=== PATIENT | female | born 1995 | race American Indian/Alaskan Native ===

== ENCOUNTER 2017-09-21 08:42 | Emergency (ER) | payer OTHER ==
[2017-09-21] MEDS ORDERED: ZOFRAN IV ONE (09:20)
[2017-09-21] MEDS ORDERED: MORPHINE IV ONE (09:20)
--- NOTE | 2017-09-21 09:25 | Emergency Department Report ---
ED Abdominal Pain HPI - General Chief Complaint: Nausea/Vomiting/Diarrhea Stated Complaint: NAUSEA/DEHYDRATED Time Seen by Provider: 09/21/17 09:17 Source: patient Mode of arrival: Ambulatory Limitations: No Limitations - History of Present Illness Initial Comments: 22-year-old female has history of "colitis" requiring hospitalization in April. Complaint: abdominal pain -: Gradual, hour(s) (12) Location: LLQ, RLQ Radiation: none Migration to: no migration Severity scale (0 -10): 10 Quality: cramping Consistency: constant Improves With: nothing Worsens With: nothing - Related Data Previous Rx's Medication Instructions Recorded Last Taken Type Promethazine [Phenergan SUPPOS] 25 mg OK Q6HR PRN #20 supp.rect 09/21/17 Unknown Rx Allergies Allergy/AdvReac Type Severity Reaction Status Date / Time No Known Allergies Allergy Unverified 09/21/17 08:56 ED Review of Systems ROS: Stated complaint: NAUSEA/DEHYDRATED Other details as noted in HPI ED Past Medical Hx - Past Medical History Additional medical history: COLITIS - Surgical History Past Surgical History?: No - Social History Smoking Status: Never Smoker Substance Use Type: Alcohol, Marijuana - Medications Home Medications: Home Medications Medication Instructions Recorded Confirmed Last Taken Type Promethazine [Phenergan SUPPOS] 25 mg OK Q6HR PRN #20 supp.rect 09/21/17 Unknown Rx ED Physical Exam - General Limitations: No Limitations General appearance: alert, other (appears uncomfortable actively vomiting) - Head Head exam: Present: atraumatic, normocephalic - Eye Eye exam: Present: normal appearance - ENT ENT exam: Present: normal orophraynx, mucous membranes moist - Neck Neck exam: Present: normal inspection, meningismus - Respiratory Respiratory exam: Present: normal lung sounds bilaterally. Absent: respiratory distress, wheezes, rales, rhonchi - Cardiovascular Cardiovascular Exam: Present: regular rate, normal rhythm, normal heart sounds. Absent: systolic murmur, diastolic murmur, rubs, gallop - GI/Abdominal GI/Abdominal exam: Present: soft, normal bowel sounds. Absent: distended, tenderness, guarding, rebound - Extremities Exam Extremities exam: Present: normal inspection - Back Exam Back exam: Present: normal inspection - Neurological Exam Neurological exam: Present: alert, oriented X3 - Psychiatric Psychiatric exam: Present: normal affect, normal mood - Skin Skin exam: Present: warm, dry, intact, normal color. Absent: rash ED Course Vital Signs 09/21/17 09/21/17 09/21/17 08:56 09:38 10:00 Temperature 99.1 F 98.1 F Pulse Rate 79 76 72 Respiratory 32 H 17 18 Rate Blood Pressure 106/66 159/85 159/85 O2 Sat by Pulse 99 100 96 Oximetry 09/21/17 10:30 Temperature Pulse Rate 77 Respiratory 18 Rate Blood Pressure 109/42 O2 Sat by Pulse 99 Oximetry ED Medical Decision Making - Lab Data Result diagrams: 09/21/17 09:14 09/21/17 09:14 Laboratory Results - last 24 hr 09/21/17 09/21/17 09/21/17 09:14 09:14 09:14 WBC 7.8 RBC 4.22 Hgb 13.0 Hct 38.4 MCV 91 MCH 31 MCHC 34 RDW 13.4 Plt Count 302 Lymph % (Auto) 8.0 L Bartholomew % (Auto) 3.4 Eos % (Auto) 0.0 Baso % (Auto) 0.4 Lymph # 0.6 L Bartholomew # 0.3 Eos # 0.0 Baso # 0.0 Seg Neutrophils % 88.2 H Seg Neutrophils # 6.9 Sodium 140 Potassium 4.1 Chloride 97.8 L Carbon Dioxide 19 L Anion Gap 27 BUN 10 Creatinine 0.6 L Estimated GFR > 60 BUN/Creatinine Ratio 17 Glucose 119 H Calcium 10.0 Total Bilirubin 1.10 AST 63 H ALT 66 H Alkaline Phosphatase 81 Total Protein 8.7 H Albumin 5.2 H Albumin/Globulin Ratio 1.5 Lipase 23 HCG, Qual Negative Urine Color Urine Turbidity Urine pH Ur Specific [place] Urine Protein Urine Glucose (UA) Urine Ketones Urine Blood Urine Nitrite Urine Bilirubin Urine Urobilinogen Ur Leukocyte Esterase Urine WBC (Auto) Urine RBC (Auto) U Epithel Cells (Auto) Urine Mucus 09/21/17 12:49 WBC RBC Hgb Hct MCV MCH MCHC RDW Plt Count Lymph % (Auto) Bartholomew % (Auto) Eos % (Auto) Baso % (Auto) Lymph # Bartholomew # Eos # Baso # Seg Neutrophils % Seg Neutrophils # Sodium Potassium Chloride Carbon Dioxide Anion Gap BUN Creatinine Estimated GFR BUN/Creatinine Ratio Glucose Calcium Total Bilirubin AST ALT Alkaline Phosphatase Total Protein Albumin Albumin/Globulin Ratio Lipase HCG, Qual Urine Color Yellow Urine Turbidity Clear Urine pH 6.0 Ur Specific [place] 1.023 Urine Protein 100 mg/dl Urine Glucose (UA) Neg Urine Ketones 20 Urine Blood Mod Urine Nitrite Neg Urine Bilirubin Neg Urine Urobilinogen < 2.0 Ur Leukocyte Esterase Neg Urine WBC (Auto) 2.0 Urine RBC (Auto) 46.0 U Epithel Cells (Auto) 2.0 Urine Mucus 2+ Vital Signs - 24 hr 09/21/17 09/21/17 09/21/17 08:56 09:38 10:00 Temperature 99.1 F 98.1 F Pulse Rate 79 76 72 Respiratory 32 H 17 18 Rate Blood Pressure 106/66 159/85 159/85 O2 Sat by Pulse 99 100 96 Oximetry 09/21/17 10:30 Temperature Pulse Rate 77 Respiratory 18 Rate Blood Pressure 109/42 O2 Sat by Pulse 99 Oximetry - Medical Decision Making Ms. Castro has abdominal pain and vomiting. She had similar presentation when she was admitted to the hospital in April. She was admitted to an outside hospital in [place] at that time. When she felt better, she was able to get him additional history. Her Symptoms began in 2010. It seems that once a year she requires ED evaluation or hospitalization for severe abdominal pain and vomiting. She has yet to see a med admin. She noted that she ate tamales prior to her hospitalization in April. Yesterday she ate taquitos for lunch. I suggested that she may have irritable bowel syndrome. With infrequent symptoms I do not suspect inflammatory bowel disease. At this time patient looks and feels much better. I have referred her a med admin and medicine physician. I prescribed Zofran ODT promethazine rectal suppositories. Critical care attestation.: If time is entered above; I have spent that time in minutes in the direct care of this critically ill patient, excluding procedure time. ED Disposition Clinical Impression: Abdominal pain, Vomiting Disposition: TO HOME OR SELFCARE Is pt being admited?: No Does the pt Need Aspirin: No Condition: Stable Instructions: Irritable Bowel Syndrome (ED), Acute Abdominal Pain (ED) Prescriptions: Promethazine [Phenergan SUPPOS] 25 mg OK Q6HR PRN #20 supp.rect PRN Reason: Nausea Referrals: LORRIE MCCARTHY MD [Staff Physician] - 3-5 Days AILEEN VILLANUEVA MD [Staff Physician] - 3-5 Days Forms: Work/School Release Form(ED) Time of Disposition: 15:00
[2017-09-21 09:32] LABS: Basophils % (Auto) 0.4 % (0.0-1.8); Hematocrit 38.4 % (30.3-42.9); Lymphocytes # (Auto) 0.6 K/mm3 (1.2-5.4); Mean Corpuscular HGB Conc 34 % (30-34); Mean Corpuscular Hemoglobin 31 pg (28-32); Mean Corpuscular Volume 91 fl (79-97); Monocytes # (Auto) 0.3 K/mm3 (0.0-0.8); Monocytes % (Auto) 3.4 % (0.0-7.3); Platelet Count 302 K/mm3 (140-440); Red Blood Count 4.22 M/mm3 (3.65-5.03); Red Cell Distribution Width 13.4 % (13.2-15.2)
[2017-09-21 09:47] LABS: Alanine Aminotransferase 66 units/L (7-56); Albumin 5.2 g/dL (3.9-5); BUN/Creatinine Ratio 17; Blood Urea Nitrogen 10 mg/dL (7-17); Hemolysis Index 34; Lipase 23 units/L (13-60)
[2017-09-21] MEDS ORDERED: NACL 0.9% 1000 ML 1,000 ML ONE (09:47)
[2017-09-21] MEDS ORDERED: NACL 0.9% 1000 ML 1,000 ML IV ONE (09:50)
[2017-09-21 13:19] LABS: Bilirubin,Urine NEG (Negative); Blood,Urine MOD (Negative); Color,Urine Yellow (Yellow); Mucus,Urine 2+ /HPF; Urobilinogen,Urine < 2.0 mg/dL (<2.0)
[2017-09-21 15:17] VITALS: BP 110/80
== END 2017-09-21 15:17 | disposition home or self-care (01) ==
LOC: ED 08:42
DX: R10.30 Lower abdominal pain, unspecified (principal); R11.10 Vomiting, unspecified; F12.10 Cannabis abuse, uncomplicated
CPT/HCPCS: 36415; 80053; 81001; 83690; 84703; 85025; 96361; 96374; 96375; 99284; J2270; J2405; J7030

== ENCOUNTER 2018-10-13 16:52 | Emergency (ER) | payer OTHER ==
[2018-10-13] MEDS ORDERED: NACL 0.9% 1000 ML IV ONE (17:07)
--- NOTE | 2018-10-13 17:07 | Emergency Department Report ---
Chief Complaint: Nausea/Vomiting/Diarrhea Stated Complaint: DRY HEAVING CONSTANT VOMITTING Time Seen by Provider: 10/13/18 17:07 - HPI History of Present Illness: actively vomiting denies dm/gastropare. not taking her colitis meds due to money last colonoscopy in fall 2017 MSE completed - Exam Vital Signs: Vital Signs 10/13/18 16:57 Temperature 98.8 F Pulse Rate 75 Respiratory 22 Rate O2 Sat by Pulse 100 Oximetry MSE screening note: Focused history and physical exam performed. Due to findings the following was ordered: ED Disposition for MSE Condition: Stable
[2018-10-13 18:15] LABS: Hematocrit 34.5 % (30.3-42.9); Hemoglobin 11.5 gm/dl (10.1-14.3); Mean Corpuscular HGB Conc 33 % (30-34); Mean Corpuscular Volume 92 fl (79-97); Platelet Count 238 K/mm3 (140-440); Red Blood Count 3.74 M/mm3 (3.65-5.03); Red Cell Distribution Width 12.5 % (13.2-15.2)
[2018-10-13 18:16] LABS: Alanine Aminotransferase 28 units/L (7-56); Albumin 4.5 g/dL (3.9-5); BUN/Creatinine Ratio 20; Blood Urea Nitrogen 12 mg/dL (7-17); Calcium 8.7 mg/dL (8.4-10.2); Hemolysis Index 6
[2018-10-13 18:51] LABS: Basophils % (Manual) 0 % (0.0-1.8); Eosinophils % (Manual) 0 % (0.0-4.3); Monocytes % (Manual) 0 % (0.0-7.3); RBC Morphology Normal; Total Cells Counted 100
--- NOTE | 2018-10-13 19:17 | Emergency Department Report ---
ED Abdominal Pain HPI - General Chief Complaint: Nausea/Vomiting/Diarrhea Stated Complaint: DRY HEAVING CONSTANT VOMITTING Time Seen by Provider: 10/13/18 17:07 Source: patient Mode of arrival: Ambulatory Limitations: No Limitations - History of Present Illness Initial Comments: 23 female presents to the emergency department complaining of a a couple day history of nausea, vomiting and diarrhea, which is similar to episodes she had about a year ago. States that she's had had these nausea vomiting diarrhea episodes a few times, which is usually resolved with Cipro and Flagyl. She she reports no hematemesis, no hematochezia, no hematuria, no fever, chills, sweats, chest pain, palpitations, no presyncope. He states he sees. She has had over 10 vomiting and diarrhea episodes. -: Gradual Location: diffuse Radiation: none Migration to: no migration Severity: mild Severity scale (0 -10): 8 Quality: burning Consistency: constant Improves With: nothing Context: other (possible N ingestion or contact for our inflammatory gastritis origin not quite sure) Associated Symptoms: nausea, vomiting, diarrhea. denies: constipation, dysuria, hematemesis, hematochezia, hematuria, anorexia - Related Data Previous Rx's Medication Instructions Recorded Last Taken Type Ondansetron [Zofran Odt] 4 mg PO Q8HR PRN #20 tab.rapdis 09/21/17 Unknown Rx Promethazine [Phenergan SUPPOS] 25 mg UT Q6HR PRN #20 supp.rect 09/21/17 Unknown Rx Ciprofloxacin HCl [Cipro] 500 mg PO BID #20 tablet 10/13/18 Unknown Rx Hyoscyamine Subl [Levsin Sl 0.125 0.125 mg SL Q4HR PRN #20 tablet 10/13/18 Unknown Rx TAB] Ondansetron [Zofran Odt] 4 mg PO Q8HR #20 tab.rapdis 10/13/18 Unknown Rx Allergies Allergy/AdvReac Type Severity Reaction Status Date / Time No Known Allergies Allergy Unverified 09/21/17 08:56 ED Review of Systems ROS: Stated complaint: DRY HEAVING CONSTANT VOMITTING Other details as noted in HPI Constitutional: denies: chills, fever Eyes: denies: eye pain, eye discharge, vision change ENT: denies: ear pain, throat pain Respiratory: denies: cough, shortness of breath, wheezing Cardiovascular: denies: chest pain, palpitations Endocrine: no symptoms reported Gastrointestinal: nausea, vomiting, diarrhea. denies: abdominal pain Genitourinary: denies: urgency, dysuria, discharge Musculoskeletal: denies: back pain, joint swelling, arthralgia Skin: denies: rash, lesions Neurological: denies: headache, weakness, paresthesias Psychiatric: denies: anxiety, depression Hematological/Lymphatic: denies: easy bleeding, easy bruising ED Past Medical Hx - Past Medical History Previous Medical History?: Yes Additional medical history: COLITIS - Surgical History Past Surgical History?: No - Social History Smoking Status: Never Smoker Substance Use Type: Alcohol - Medications Home Medications: Home Medications Medication Instructions Recorded Confirmed Last Taken Type Ondansetron [Zofran Odt] 4 mg PO Q8HR PRN #20 tab.rapdis 09/21/17 Unknown Rx Promethazine [Phenergan SUPPOS] 25 mg UT Q6HR PRN #20 supp.rect 09/21/17 Unknown Rx Ciprofloxacin HCl [Cipro] 500 mg PO BID #20 tablet 10/13/18 Unknown Rx Hyoscyamine Subl [Levsin Sl 0.125 0.125 mg SL Q4HR PRN #20 tablet 10/13/18 Unknown Rx TAB] Ondansetron [Zofran Odt] 4 mg PO Q8HR #20 tab.rapdis 10/13/18 Unknown Rx ED Physical Exam - General Limitations: No Limitations General appearance: alert, in no apparent distress - Head Head exam: Present: atraumatic, normocephalic - Eye Eye exam: Present: normal appearance, PERRL, EOMI Pupils: Present: normal accommodation - ENT ENT exam: Present: normal exam, normal orophraynx, mucous membranes moist - Neck Neck exam: Present: normal inspection, tenderness, full ROM - Respiratory Respiratory exam: Present: normal lung sounds bilaterally. Absent: respiratory distress, wheezes, rales, chest wall tenderness, accessory muscle use - Cardiovascular Cardiovascular Exam: Present: regular rate, normal rhythm. Absent: systolic murmur, diastolic murmur, rubs, gallop - GI/Abdominal GI/Abdominal exam: Present: soft, tenderness (mild mild tenderness with deep palpation. The abdomen is soft. No [place] sign. No tenderness at McBurney's or Beatty sign. No abdominal distention or bruit or rigidness.), normal bowel sounds. Absent: guarding, hyperactive bowel sounds, organomegaly, mass, bruit, hernia - Extremities Exam Extremities exam: Present: normal inspection, full ROM, normal capillary refill, pedal edema - Back Exam Back exam: Present: normal inspection. Absent: CVA tenderness (R), CVA tenderness (L) - Neurological Exam Neurological exam: Present: alert, oriented X3, CN II-XII intact, normal gait - Psychiatric Psychiatric exam: Present: normal affect, normal mood. Absent: depressed, anxious, flat affect, manic - Skin Skin exam: Present: warm, dry, intact, normal color. Absent: rash, cyanosis, diaphoretic, erythema ED Course Vital Signs 10/13/18 10/13/18 10/14/18 16:57 20:12 00:30 Temperature 98.8 F 99.1 F 99.2 F Pulse Rate 75 78 101 H Respiratory 22 20 16 Rate Blood Pressure 132/55 107/55 [Left] O2 Sat by Pulse 100 100 99 Oximetry - Reevaluation(s) Reevaluation #1: 10/14/18 02:13 Symptoms are 100% resolved feels much, much better, tolerating orals, no abdominal pain. She initially refused CT scan and further workup and eval uation. However, upon her discharge that has been treated with nausea and vomiting and then changed her mind about the test that were recommended. Subsequently CT scan was obtained that she simply full-grown the pelvis. Ultrasound was only positive for cyst. She was aware of the systems are revi ewed ED Medical Decision Making - Lab Data Result diagrams: 10/13/18 17:50 10/13/18 17:50 - Radiology Data Radiology results: image reviewed Print Report Referring Physician: BELLE CASTAÑEDA Patient Name: SHEREE COX Date of : 1995 Sex: Female Report Date: 2018-10-13 Report Status: Finalized Findings [facility] [address] [place] [address] Cat Scan Report Signed Patient: SHEREE COX MR#: [id number] : 1995 Acct:[id number] Age/Sex: 23 / F ADM Date: 10/13/18 Loc: ED Attending Dr: Ordering Physician: JAMAAL WOLFE Date of Service: 10/13/18 Procedure(s): CT abdomen pelvis w con Accession Number(s): [id number] cc: JAMAAL WOLFE PROCEDURE: CT ABDOMEN PELVIS W CON TECHNIQUE: Following administration of IV contrast axial helical imaging was performed through the abdomen and pelvis with sagittal and coronal reformatted images obtained. Delayed axial helical imaging was also performed to the abdomen and pelvis. HISTORY: ABD PAIN AND DIARRHEA WITH VOMITING COMPARISONS: None FINDINGS: The lung bases are without infiltrate, pneumothorax or pleural fluid collection. There is evidence of fatty infiltration of the liver. The spleen, pancreas, kidneys and adrenal glands are unremarkable. The gallbladder is moderately distended and unremarkable in appearance. The bowel is normal caliber. The appendix is normal caliber. There is a small amount of free fluid in the pelvis. The Hounsfield units are higher than would be expected for a simple transudate. The amount of fluid is more than would be expected for physiologic fluid. There is no evidence of pneumoperitoneum. The abdominal aorta is normal caliber. There is no evidence of intra-abdominal adenopathy. The urinary bladder is moderately distended but otherwise unremarkable. The uterus and adnexa are notable for air within the cervix. The bony structures are unremarkable. IMPRESSION: 1. Small amount of free fluid in the pelvis with Hounsfield units are higher than would be expected for a simple transudate and may represent proteinaceous content or blood products. 2. Air within the cervix. Pelvic ultrasound may be helpful for further evaluation of the above findings. 3. Fatty infiltration of the liver. This document is electronically signed by Gerda Espinoza MD., October 13 2018 09:59:25 PM ET Transcribed By: ED Dictated By: GERDA ESPINOZA MD Electronically Authenticated By: GERDA ESPINOZA MD Signed Date/Time: 10/13/182200 - Medical Decision Making I discussed the left findings with misgivings getting up. States that her symptoms have improved since been in the emergency department. She received fluids as well as medication. Based on her examination and her history of her CT scan. She refused saying that she is pretty confident that the Cipro, Flagyl result problem multiple times in the past. She said she would like to have a prescription for that medication. She alert and oriented 3, no acute distress. No active bleeding. Afebrile Critical care attestation.: If time is entered above; I have spent that time in minutes in the direct care of this critically ill patient, excluding procedure time. ED Disposition Clinical Impression: Gastroenteritis, Ovarian cyst, Abdominal pain Disposition: TO HOME OR SELFCARE Is pt being admited?: No Does the pt Need Aspirin: No Condition: Stable Instructions: Gastroenteritis (ED), Acute Nausea and Vomiting (ED), Ovarian Cyst (ED) Prescriptions: Ciprofloxacin HCl [Cipro] 500 mg PO BID #20 tablet Hyoscyamine Subl [Levsin Sl 0.125 TAB] 0.125 mg SL Q4HR PRN #20 tablet PRN Reason: Spasms Ondansetron [Zofran Odt] 4 mg PO Q8HR #20 tab.arnulfo Referrals: YOSHI GUTIERREZ MD [Primary Care Provider] - 3-5 Days
[2018-10-13] MEDS ORDERED: ZOFRAN ONE (19:37)
[2018-10-13] MEDS ORDERED: ZOFRAN IV ONE (19:41)
[2018-10-13] MEDS ORDERED: LEVSIN SL SL ONE (20:17)
[2018-10-13] MEDS ORDERED: REGLAN IV STA (20:17)
[2018-10-13] MEDS ORDERED: NACL 0.9% 1000 ML 1,000 ML IV ONE (20:17)
[2018-10-13 20:18] LABS: Bilirubin,Urine NEG (Negative); Blood,Urine NEG (Negative); Color,Urine Straw (Yellow); Mucus,Urine FEW /HPF; Protein,Urine <15 mg/dL mg/dL (Negative); Urobilinogen,Urine < 2.0 mg/dL (<2.0)
[2018-10-13 20:28] LABS: HCG Qualitative,Urine Negative (Negative)
--- NOTE | 2018-10-13 22:01 | Cat Scan Report ---
PROCEDURE: CT ABDOMEN PELVIS W CON TECHNIQUE: Following administration of IV contrast axial helical imaging was performed through the a bdomen and pelvis with sagittal and coronal reformatted images obtained. Delayed axial helical imagin g was also performed to the abdomen and pelvis. HISTORY: ABD PAIN AND DIARRHEA WITH VOMITING COMPARISONS: None FINDINGS: The lung bases are without infiltrate, pneumothorax or pleural fluid collection. There is evidence of fatty infiltration of the liver. The spleen, pancreas, kidneys and adrenal glands are unremarkable. The gallbladder is moderately distended and unremarkable in appearance. The bowel is normal caliber. The appendix is normal caliber. There is a small amount of free fluid in the pelvis. The Hounsfield units are higher than would be ex pected for a simple transudate. The amount of fluid is more than would be expected for physiologic fl uid. There is no evidence of pneumoperitoneum. The abdominal aorta is normal caliber. There is no evidence of intra-abdominal adenopathy. The urinary bladder is moderately distended but otherwise unremarkable. The uterus and adnexa are notable for air within the cervix. The bony structures are unremarkable. IMPRESSION: 1. Small amount of free fluid in the pelvis with Hounsfield units are higher than would be expected f or a simple transudate and may represent proteinaceous content or blood products. 2. Air within the cervix. Pelvic ultrasound may be helpful for further evaluation of the above findings. 3. Fatty infiltration of the liver. This document is electronically signed by Gerda Espinoza MD., October 13 2018 09:59:25 PM ET
--- NOTE | 2018-10-14 00:12 | Ultrasound Report ---
PROCEDURE: US PELVIC COMPLETE TECHNIQUE: Real-time transabdominal sonography in multiple planes of the pelvis was performed. The p elvic structures, especially the ovaries, were not optimally visualized. Transvaginal sonography was then performed to better evaluate the structures and/or abnormalities described below with image docu mentation. HISTORY: pelvic pain and air in cervix and free fluid on CT COMPARISONS: None . FINDINGS: UTERUS Size: 7.7 x 3.7 x 4.6 cm. Endometrial thickness: 7 mm. Orientation: anteverted. Cervix: Normal. Fibroids/masses: None. RIGHT Ovary: 3.1 x 1.9 x 2.6 cm. Appearance: Dominant follicular cyst measures 9 mm. LEFT Ovary: 2.8 x 1.8 x 2.7 cm. Appearance: Normal. Pelvic fluid: Slight fluid around the right ovary. Other: None. IMPRESSION: The uterus and left ovary have a normal appearance. There is a small follicular cyst in the right ovary this measures 5 mm. Minimal fluid around the right ovary is noted.. This document is electronically signed by Eloise Casas DO., October 14 2018 12:09:56 AM ET
[2018-10-14 02:18] VITALS: BP 103/60
== END 2018-10-14 02:19 | disposition home or self-care (01) ==
LOC: ED 16:52
DX: K52.9 Noninfective gastroenteritis and colitis, unspecified (principal); N83.209 Unspecified ovarian cyst, unspecified side
CPT/HCPCS: 36415; 74177; 76830; 76856; 80053; 81001; 81025; 83690; 85007; 85025; 96361; 96374; 96375; 99284; J2405; J2765; J7030; Q9967

== ENCOUNTER 2018-10-14 12:15 | Emergency (ER) | payer OTHER ==
[2018-10-14 13:08] VITALS: BP 126/53
--- NOTE | 2018-10-14 13:08 | Emergency Department Report ---
Blank Doc - Documentation Documentation: This is a 23-year-old female that presents with nausea vomiting and abdominal pain. Stated was here last night for similar symptoms and felt better and was discharge but symptoms reoccurred. This initial assessment/diagnostic orders/clinical plan/treatment(s) is/are subject to change based on patient's health status, clinical progression and re- assessment by fellow clinical providers in the ED. Further treatment and workup at subsequent clinical providers discretion. Patient/guardians urged not to elope from the ED as their condition may be serious if not clinically assessed and managed. Initial orders include: 1- Patient sent to [facility] for further evaluation and treatment 2- labs 3- UA
[2018-10-14] MEDS ORDERED: REGLAN PO ONE (13:10)
[2018-10-14 14:02] LABS: Alanine Aminotransferase 25 units/L (7-56); Albumin 4.5 g/dL (3.9-5); BUN/Creatinine Ratio 16; Blood Urea Nitrogen 13 mg/dL (7-17); Calcium 9.3 mg/dL (8.4-10.2); Hemolysis Index 11
[2018-10-14 14:23] LABS: Basophils % (Auto) 0.3 % (0.0-1.8); Eosinophils % (Auto) 0.1 % (0.0-4.3); Hemoglobin 12.8 gm/dl (10.1-14.3); Lymphocytes # (Auto) 1.6 K/mm3 (1.2-5.4); Mean Corpuscular HGB Conc 34 % (30-34); Mean Corpuscular Volume 92 fl (79-97); Monocytes # (Auto) 0.6 K/mm3 (0.0-0.8); Monocytes % (Auto) 5.5 % (0.0-7.3); Platelet Count 311 K/mm3 (140-440); Red Blood Count 4.14 M/mm3 (3.65-5.03); Red Cell Distribution Width 12.5 % (13.2-15.2)
== END 2018-10-14 15:59 | disposition left against medical advice (07) ==
LOC: ED 12:15
DX: R11.10 Vomiting, unspecified (principal); Z53.21 Procedure and treatment not carried out due to patient leaving prior to being seen by health care provider
CPT/HCPCS: 36415; 80053; 83690; 85025

== ENCOUNTER 2018-12-17 01:50 | Emergency (ER) | payer OTHER ==
[2018-12-17 01:57] VITALS: BP 129/75
[2018-12-17 02:55] LABS: Basophils # (Auto) 0.1 K/mm3 (0.0-0.1); Basophils % (Auto) 0.8 % (0.0-1.8); Eosinophils % (Auto) 0.2 % (0.0-4.3); Hematocrit 36.8 % (30.3-42.9); Hemoglobin 12.4 gm/dl (10.1-14.3); Lymphocytes # (Auto) 1.3 K/mm3 (1.2-5.4); Lymphocytes % (Auto) 17.4 % (13.4-35.0); Mean Corpuscular HGB Conc 34 % (30-34); Mean Corpuscular Volume 92 fl (79-97); Monocytes # (Auto) 0.4 K/mm3 (0.0-0.8); Monocytes % (Auto) 5.6 % (0.0-7.3); Platelet Count 306 K/mm3 (140-440); Red Cell Distribution Width 12.8 % (13.2-15.2)
[2018-12-17 03:10] LABS: Alanine Aminotransferase 47 units/L (7-56); Albumin 4.6 g/dL (3.9-5); BUN/Creatinine Ratio 14; Blood Urea Nitrogen 10 mg/dL (7-17); Hemolysis Index 2
[2018-12-17 03:10] LABS: Bacteria,Urine 1+ /HPF (Negative); Bilirubin,Urine NEG (Negative); Blood,Urine NEG (Negative); Color,Urine Yellow (Yellow); Mucus,Urine FEW /HPF; Urobilinogen,Urine < 2.0 mg/dL (<2.0)
[2018-12-17] MEDS ORDERED: ZOFRAN IV ONE (03:35)
[2018-12-17] MEDS ORDERED: NACL 0.9% 1000 ML 1,000 ML IV ONE ×2 (03:35→06:15)
[2018-12-17] MEDS ORDERED: NACL 0.9% 1000 ML 1,000 ML ONE (03:39)
[2018-12-17] MEDS ORDERED: ZOFRAN ONE (03:39)
[2018-12-17] MEDS ORDERED: REGLAN ONE (04:12)
[2018-12-17] MEDS ORDERED: REGLAN IV ONE (05:48)
[2018-12-17] MEDS ORDERED: REGLAN IM ONE (06:15)
--- NOTE | 2018-12-17 06:17 | Emergency Department Report ---
<MIKEY COOL - Last Filed: 12/17/18 06:33> ED General Adult HPI - General Chief complaint: Nausea/Vomiting/Diarrhea Stated complaint: VOMITING Time Seen by Provider: 12/17/18 06:14 Source: patient, family Mode of arrival: Ambulatory Limitations: No Limitations - History of Present Illness Initial comments: 23-year-old [place] female comes to the emergency room for nausea and vomiting and abdominal pain that started about 8 PM yesterday. Patient denies any fever or chills. Patient reports that she has a history of colitis and not able to tell me which time. -: During the night Quality: aching, sharp Consistency: constant Improves with: none Associated Symptoms: nausea/vomiting Treatments Prior to Arrival: none - Related Data Previous Rx's Medication Instructions Recorded Last Taken Type Ondansetron [Zofran Odt] 4 mg PO Q8HR PRN #20 tab.rapdis 09/21/17 Unknown Rx Promethazine [Phenergan SUPPOS] 25 mg PA Q6HR PRN #20 supp.rect 09/21/17 Unknown Rx Ciprofloxacin HCl [Cipro] 500 mg PO BID #20 tablet 10/13/18 Unknown Rx Hyoscyamine Subl [Levsin Sl 0.125 0.125 mg SL Q4HR PRN #20 tablet 10/13/18 Unknown Rx TAB] Ondansetron [Zofran Odt] 4 mg PO Q8HR #20 tab.rapdis 10/13/18 Unknown Rx Allergies Allergy/AdvReac Type Severity Reaction Status Date / Time No Known Allergies Allergy Unverified 09/21/17 08:56 ED Review of Systems Comment: All other systems reviewed and negative Constitutional: denies: chills, fever Eyes: denies: eye pain, eye discharge, vision change ENT: denies: ear pain, throat pain Respiratory: denies: cough, shortness of breath, wheezing Cardiovascular: denies: chest pain, palpitations Endocrine: no symptoms reported Gastrointestinal: abdominal pain, nausea, vomiting. denies: diarrhea Genitourinary: denies: urgency, dysuria, discharge Musculoskeletal: denies: back pain, joint swelling, arthralgia Skin: denies: rash, lesions Neurological: denies: headache, weakness, paresthesias Psychiatric: denies: anxiety, depression Hematological/Lymphatic: denies: easy bleeding, easy bruising ED Past Medical Hx - Past Medical History Previous Medical History?: Yes Additional medical history: COLITIS - Surgical History Past Surgical History?: No - Social History Smoking Status: Never Smoker Substance Use Type: None - Medications Home Medications: Home Medications Medication Instructions Recorded Confirmed Last Taken Type Ondansetron [Zofran Odt] 4 mg PO Q8HR PRN #20 tab.rapdis 09/21/17 Unknown Rx Promethazine [Phenergan SUPPOS] 25 mg PA Q6HR PRN #20 supp.rect 09/21/17 Unknown Rx Ciprofloxacin HCl [Cipro] 500 mg PO BID #20 tablet 10/13/18 Unknown Rx Hyoscyamine Subl [Levsin Sl 0.125 0.125 mg SL Q4HR PRN #20 tablet 10/13/18 Unknown Rx TAB] Ondansetron [Zofran Odt] 4 mg PO Q8HR #20 tab.rapdis 10/13/18 Unknown Rx ED Physical Exam - General Limitations: No Limitations General appearance: alert, in no apparent distress, other (actively vomiting) - Head Head exam: Present: atraumatic, normocephalic - Eye Eye exam: Present: normal appearance - ENT ENT exam: Present: mucous membranes moist - Neck Neck exam: Present: normal inspection - Respiratory Respiratory exam: Present: normal lung sounds bilaterally. Absent: respiratory distress - Cardiovascular Cardiovascular Exam: Present: regular rate, normal rhythm. Absent: systolic murmur, diastolic murmur, rubs, gallop - GI/Abdominal GI/Abdominal exam: Present: soft, guarding, rebound, normal bowel sounds. Absent: distended, tenderness - Extremities Exam Extremities exam: Present: normal inspection - Back Exam Back exam: Present: normal inspection - Neurological Exam Neurological exam: Present: alert, oriented X3 - Psychiatric Psychiatric exam: Present: normal affect, normal mood - Skin Skin exam: Present: warm, dry, intact, normal color. Absent: rash ED Medical Decision Making - Lab Data Result diagrams: 12/17/18 02:17 12/17/18 02:17 - Medical Decision Making 23-year-old female comes in with nausea vomiting abdominal pain. Patient reports a history of colitis. Patient's had 1 L of fluids with IV Zofran still continues to vomit patient was given IV Reglan still continues to vomit patient was given another bolus of normal saline and a Reglan injection as well as CT with contrast has been ordered for abdominal pain. Lennox Wall will take over patient. ED Disposition Clinical Impression: Abdominal pain Qualifiers: Abdominal location: unspecified location Qualified Code(s): R10.9 - Unspecified abdominal pain Disposition: DC-07 LEFT AGAINST MED ADVICE Condition: Stable Instructions: Acute Abdominal Pain (ED) Referrals: RAINA FINCH MD [Primary Care Provider] - 3-5 Days <LENNOX GAN - Last Filed: 12/17/18 08:14> ED Review of Systems ROS: Stated complaint: VOMITING Other details as noted in HPI ED Course Vital Signs 12/17/18 12/17/18 01:53 01:55 Temperature 97.9 F 97.9 F Pulse Rate 68 68 Respiratory 18 18 Rate Blood Pressure 129/75 129/75 O2 Sat by Pulse 100 100 Oximetry - Reevaluation(s) Reevaluation #1: 12/17/18 08:11 Pt signed out to me at shift change---Pt refusing CT scan stating she had one earlier this year and does not want another. I advised her that we could miss a potentially life threatening etiology of her pain such as appendicitis or other acute surgical process and that delayed diagnosis can result in serious infection and She verbalizes understanding of this and has decision making capacity Advised she will be signing out AMA with all risks understood Advised to follow up and to return at any time for further workup. Lennox Gan PA-C ED Medical Decision Making - Lab Data Result diagrams: 12/17/18 02:17 12/17/18 02:17 Critical care attestation.: If time is entered above; I have spent that time in minutes in the direct care of this critically ill patient, excluding procedure time. ED Disposition Is pt being admited?: No Time of Disposition: 08:14
[2018-12-17] MEDS ORDERED: MORPHINE IM ONE (06:26)
[2018-12-17] MEDS ORDERED: MORPHINE ONE (06:29)
== END 2018-12-17 08:30 | disposition left against medical advice (07) ==
LOC: ED 01:50
DX: R10.9 Unspecified abdominal pain (principal); R11.2 Nausea with vomiting, unspecified
CPT/HCPCS: 36415; 80053; 81001; 83690; 84703; 85025; 96361; 96372; 96374; 96375; 99283; J2270; J2405; J2765; J7030

== ENCOUNTER 2018-12-18 03:25 | Emergency (ER) | payer OTHER ==
[2018-12-18 03:35] VITALS: BP 126/74
[2018-12-18] MEDS ORDERED: ZOFRAN ODT ONE (03:40)
[2018-12-18] MEDS ORDERED: ZOFRAN ODT PO ONE (03:45)
[2018-12-18] MEDS ORDERED: REGLAN ONE (05:11)
[2018-12-18] MEDS ORDERED: REGLAN IM ONE (05:12)
[2018-12-18] MEDS ORDERED: BENTYL IM ONE (06:18)
== END 2018-12-18 05:00 | disposition left against medical advice (07) ==
LOC: ED 03:25
DX: R11.2 Nausea with vomiting, unspecified (principal); Z53.21 Procedure and treatment not carried out due to patient leaving prior to being seen by health care provider
CPT/HCPCS: J2765; Q0162